=== PATIENT | female | born 1965 | race Caucasian/White ===

== ENCOUNTER → 2017-04-14 | Outpatient (CLI) | payer BC ==
[~2017-04-14] MED LIST: AMBIEN 5MG TABLE5 MG PO; IMITREX50 MG PO; OMEGA 31000 MG PO
== END ==
LOC: MC.RAD 08:20
DX: Z12.31 Encounter for screening mammogram for malignant neoplasm of breast (principal)

== ENCOUNTER → 2017-04-20 | Outpatient (CLI) | payer BC | LOC: MC.RAD 08:00 | DX: N60.11 Diffuse cystic mastopathy of right breast (principal); N60.01 Solitary cyst of right breast; N63.10 Unspecified lump in the right breast, unspecified quadrant ==

== ENCOUNTER → 2018-09-13 | Outpatient (CLI) | payer BC | LOC: MC.RAD 07:45 | DX: Z12.31 Encounter for screening mammogram for malignant neoplasm of breast (principal) ==

== ENCOUNTER → 2019-06-11 | Outpatient (CLI) | payer BC ==
[2019-06-11 11:36] LABS: URIC ACID 2.5 mg/dL (2.5-6.2)
[2019-06-11 11:40] LABS: C-REACTIVE PROTEIN < 0.5 mg/dL (0.0-0.9)
[2019-06-12 05:11] LABS: RHEUMATOID FACTOR-SCREEN <15 IU/mL (0-29)
== END ==
LOC: COL.LAB 10:28
PROVIDERS: Orthopaedic Surgery Sports Medicine
DX: M79.641 Pain in right hand (principal)

== ENCOUNTER 2019-06-27 09:30 | Outpatient (RCR) | payer BC | END 2019-09-19 | disposition home or self-care (01) | LOC: WSPT | DX: M65.841 Other synovitis and tenosynovitis, right hand (principal) ==